=== PATIENT | male | born 1950 | race Caucasian/White ===

== ENCOUNTER 2017-09-16 10:28 | Outpatient (CLI) | payer OTHER | END 2017-09-16 15:43 | disposition home or self-care (01) | LOC: HPC 10:28 | DX: K43.2 Incisional hernia without obstruction or gangrene (principal) | CPT/HCPCS: G0463 ==

== ENCOUNTER 2017-11-05 08:52 | Observation (INO) | payer OTHER ==
[2017-11-05] MEDS: SODIUM CHLORIDE 0.9% 1L IRRIG IRR
[2017-11-05] MEDS: BUPIVACAINE 0.25%/EPI (SDV) 30 ML INJ INJ
[2017-11-05] MEDS: POLYMYXIN/BACITRACIN 1L IRRIG
[2017-11-05] MEDS: D5W-0.45 NACL + KCL 20 MEQ 1,000 ML IV ×2 (06:00→16:00)
[2017-11-05] MEDS: CEFAZOLIN 2 GM/50 ML (PMX) 50 ML IVPB (06:00)
[~2017-11-05 08:52] MED LIST: LIDOCAINE 2% (SDV) 5 ML INJ; ONDANSETRON 4 MG INJ; PROPOFOL 20 ML; PROPOFOL 200 MG INJ; ROCURONIUM 50 MG INJ
[2017-11-05] MEDS ORDERED: CLINDAMYCIN 600 MG/D5W (PMX) 50 ML IVPB (12:39)
[2017-11-05] MEDS ORDERED: FENTAnyl 50 MCG/ML VIAL ×2 (12:40→14:21)
[2017-11-05] MEDS ORDERED: HYDROmorphONE 2 MG/ML SYG (13:11)
[2017-11-05] MEDS ORDERED: ACETAMINOPHEN 1000MG/100ML IV 100 ML (13:15)
[2017-11-05] MEDS ORDERED: EPHEDrine SULFATE 50 MG/5 ML SYG (14:07)
[2017-11-05] MEDS ORDERED: ROCURONIUM 50 MG INJ (14:21)
[2017-11-05] MEDS ORDERED: SUGAMMADEX SODIUM 200 MG/2 ML VIAL IV (14:22)
[2017-11-05] MEDS ORDERED: HYDROmorphONE (0.2 MG/ML) 10ML SYG IV ×2 (17:00)
[2017-11-05] MEDS ORDERED: HYDROCODONE/APAP (5/325) TAB PO (17:00)
[2017-11-05] MEDS ORDERED: KETOROLAC 30 MG INJ IV (17:00)
[2017-11-05] MEDS ORDERED: DOCUSATE SODIUM 100 MG CAP PO (17:00)
[2017-11-05] MEDS ORDERED: HYDROmorphONE 1 MG/ML SYG IV (17:00)
[2017-11-05] MEDS ORDERED: BISACODYL 10 MG SUPP PR (17:00)
[2017-11-05] MEDS ORDERED: NA PHOSPHATE/BIPHOS 133 ML ENEMA PR (17:00)
[2017-11-05] MEDS ORDERED: ONDANSETRON 4 MG INJ IV (17:00)
[2017-11-05] MEDS ORDERED: FENTAnyl 50 MCG/ML VIAL IV (17:00)
[2017-11-06] MEDS: HYDROCODONE/APAP (5/325) TAB PO (02:35)
[2017-11-06] MEDS: HYDROmorphONE 0.5 MG/0.5 ML SYG IV (06:11)
[2017-11-06] MEDS: FAMOTIDINE 20 MG INJ IV (08:31)
[2017-11-06] MEDS: ENOXAPARIN 40 MG/0.4 ML SYG SC (08:33)
[2017-11-06 08:59] LABS: ADD MAN DIFF? NO
[2017-11-06 09:05] LABS: WHITE BLOOD COUNT 9.9 10^3/ul (4.8-10.8)
[2017-11-06 09:05] LABS: BASOPHILS % 0.3 % (0.0-2.0); EOSINOPHILS % 0.4 % (0.0-7.0); HEMATOCRIT 41.3 % (42.0-52.0); HEMOGLOBIN 14.4 g/dl (14.0-18.0); LYMPHOCYTES # 1.3 10^3/ul (0.8-2.9); LYMPHOCYTES % 12.9 % (15.0-51.0); MEAN CORPUSCULAR HEMOGLOBIN 33.7 pg (29.0-33.0); MEAN CORPUSCULAR HGB CONC 34.9 g/dl (32.0-37.0); MEAN CORPUSCULAR VOLUME 96.7 fl (82.0-101.0); MEAN PLATELET VOLUME 9.9 fl (7.4-10.4); MONOCYTE # 0.8 10^3/ul (0.3-0.9); NEUTROPHIL # 7.7 10^3/ul (1.6-7.5); NEUTROPHILS % 78.1 % (39.0-77.0); PLATELET COUNT 163 10^3/UL (140-415); RED BLOOD COUNT 4.27 10^6/ul (4.70-6.10); RED CELL DISTRIBUTION WIDTH 13.2 % (11.5-14.5)
[2017-11-06 09:41] LABS: ANION GAP 15 (8-16); BLOOD UREA NITROGEN 11 mg/dl (7-20); CALCIUM 8.7 mg/dl (8.4-10.2); CARBON DIOXIDE 27 mmol/L (21-31); CHLORIDE 102 mmol/L (97-110); CREATININE 0.75 mg/dl (0.61-1.24); GLUCOSE 102 mg/dl (70-220); POTASSIUM 3.8 mmol/L (3.5-5.1); SODIUM 140 mmol/L (135-144)
== END 2017-11-06 15:30 | disposition home or self-care (01) ==
LOC: REC 08:52 → MS2 19:40
DX: K43.2 Incisional hernia without obstruction or gangrene (principal); L90.5 Scar conditions and fibrosis of skin; Z88.0 Allergy status to penicillin; Z85.038 Personal history of other malignant neoplasm of large intestine
CPT/HCPCS: 11406; 80048; 83735; 84100; 85025; 88304; 99217

== ENCOUNTER 2017-11-18 10:58 | Outpatient (CLI) | payer OTHER | END 2017-11-18 15:29 | disposition home or self-care (01) | LOC: HPC 10:58 | DX: K43.2 Incisional hernia without obstruction or gangrene (principal) | CPT/HCPCS: G0463 ==